=== PATIENT | male | born 1985 | race Caucasian/White ===

== ENCOUNTER 2019-03-16 11:47 | Emergency (ER) | payer OTHER ==
[2019-03-16] MEDS ORDERED: Ondansetron 4 MG/2 ML SDV IVPUSH ONE (11:52)
[2019-03-16] MEDS ORDERED: fentaNYL 50 MCG/ML SDV IVPUSH ONE (12:07)
[2019-03-16] MEDS: fentaNYL 50 MCG/ML SDV IVPUSH ONE ×2 (12:15→12:18)
[2019-03-16] MEDS: fentaNYL 100 MCG/2 ML SDV ONE ×3 (12:15→12:57)
--- NOTE | 2019-03-16 12:47 | CT ---
CT abdomen and pelvis Technique: Multiple axial sections were obtained from above the dome of the diaphragm inferiorly through the pubic symphysis. Intravenous and oral contrast not utilized. Lack of IV contrast diminishes detail for solid organ injury. Comparison: No prior abdominal imaging. Findings: Visualized lung bases shows nothing acute. Compression fracture is seen of T9 with anterior wedging. Fractures are also noted within the lamina on both sides. Findings are compatible with unstable fracture. Slightly displaced posterior elements into the central canals seen causing mild central canal stenosis. Transverse spinous process fracture also noted of T9. Surrounding soft tissue hematoma is seen within the paravertebral soft tissues. No discrete abnormality is seen within the liver. No discrete abnormality is seen within the spleen. Adrenal glands show no nodule. Pancreas shows no discrete abnormality. Artifact is noted from orthopedic hardware within the spine. No discrete abnormality is appreciated within either kidney. Aorta shows no aneurysm. No retroperitoneal adenopathy or mesenteric abnormalities are definitely seen. No pelvic mass or adenopathy is seen. No free fluid or inflammatory change is seen. Partially visualized donn within the left femur is noted. No other acute osseous finding is appreciated. Impression: 1. Compression fracture within T9 with fracture of the posterior elements. Slightly displaced posterior elements into the central canal is seen causing mild central canal stenosis. This fracture is unstable. Surrounding soft tissue hematoma is seen within the paravertebral soft tissues. Transverse process fracture is also noted to the left side of T9. 2. Artifact from orthopedic hardware within the lumbar spine. Study also slightly limited due to lack of IV contrast. 3. Within the limitations as noted above, no definite acute intra-abdominal or intrapelvic abnormality is appreciated. Diagnostic code #5 This report was dictated in [place] Standard Time
--- NOTE | 2019-03-16 12:52 | CT ---
CT lumbar spine Technique: Multiple axial sections were obtained multiple axial sections were obtained from the mid T10 level inferiorly through the L5-S1 disc. Reconstructed sagittal and coronal images were obtained. Findings: Mild paravertebral soft tissue hematoma is seen from the T9 fracture surrounding the T10 vertebral body. Disc space narrowing is noted at T10-11 and T11-12. Previous surgery is noted at L2-3 and L3-4 with intravertebral hardware as well as transpedicle screws within L2. Posterior laminectomy is seen at the surgical levels. Bony structures show focal osteopenia within the surgical levels as well as artifact. Transpedicle screws are also noted at L4. No lumbar spine fracture is appreciated. No bony central or bony neural foraminal stenosis is seen. No traumatic disc herniation is identified. L5-S1 level felt to be a transitional segment. Impression: 1. Transitional segment at L5-S1. 2. Prior surgery at L2, L3 and L4. 3. Mild paravertebral soft tissue hematoma at T10 secondary to the T9 compression fracture. 4. No lumbar spine fracture is seen. No traumatic disc herniation seen within the lumbar spine. Diagnostic code #3 This report was dictated in [place] Standard Time
[2019-03-16 13:21] LABS: BLOOD UREA NITROGEN,BUN 17 mg/dL (7.0-18.0); CARBON DIOXIDE,CO2 27.7 mmol/L (21.0-32.0); CHLORIDE,CL 102 mmol/L (98-107); GLUCOSE RANDOM 125 mg/dL (74-106); LIPASE 87 U/L (73-393); POTASSIUM,K 4.2 mmol/L (3.5-5.1); SODIUM,NA 139 mmol/L (136-148)
[2019-03-16] MEDS ORDERED: HYDROmorphone 2 MG/ML Syringe IVPUSH ONE (13:21)
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
== END 2019-03-16 14:50 ==
LOC: MW.ED 11:47
DX: S22.078A Other fracture of T9-T10 vertebra, initial encounter for closed fracture (principal); F17.210 Nicotine dependence, cigarettes, uncomplicated; Z91.040 Latex allergy status; V48.5XXA Car driver injured in noncollision transport accident in traffic accident, initial encounter; Y92.410 Unspecified street and highway as the place of occurrence of the external cause
CPT/HCPCS: 36415; 72131; 74176; 80053; 80305; 80320; 81003; 83690; 85025; 96374; 96375; 99285; J1170; J2405; J3010; G0480

== ENCOUNTER 2020-03-12 08:37 | Emergency (ER) | payer BC, OTHER ==
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
[2020-03-12] MEDS ORDERED: Ibuprofen 800 MG Tab PO ONE (09:16)
--- NOTE | 2020-03-12 09:16 | CR ---
Indication: Wrist pain status post injury Technique: Three views of the right wrist Findings: Comminuted intra-articular distal radius fracture 4 millimeters volar displacement of the distal radius. No significant angulation. Associated soft tissue swelling. Dictated by Robyn Sierra MD @ Mar 12 2020 9:10AM Signed by Dr. Robyn Sierra @ Mar 12 2020 9:15AM
== END 2020-03-12 09:51 | disposition home or self-care (01) ==
LOC: MW.ED 08:37
DX: S52.571A Other intraarticular fracture of lower end of right radius, initial encounter for closed fracture (principal); Z91.040 Latex allergy status; W17.89XA Other fall from one level to another, initial encounter
CPT/HCPCS: 29125; 73110; 99283; A9270

== ENCOUNTER 2020-04-13 11:45 | Emergency (ER) | payer BC ==
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
[2020-04-13 13:24] LABS: ACETAMINOPHEN <2.0 ug/mL; BLOOD UREA NITROGEN,BUN 14 mg/dL (7.0-18.0); CARBON DIOXIDE,CO2 23.1 mmol/L (21.0-32.0); CHLORIDE,CL 101 mmol/L (98-107); GLUCOSE RANDOM 59 mg/dL (74-106); POTASSIUM,K 4.1 mmol/L (3.5-5.1); SODIUM,NA 139 mmol/L (136-148)
--- NOTE | 2020-04-13 18:43 | PCM.SN.2 ---
#1 Interpretation EKG Date: 04/13/20 Time: 12:15 Rhythm: NSR Rate (Beats/Min): 70 [place]: Normal P-Wave: Present QRS: Normal ST-T: Normal QT: Normal Comparison: NA - No Prior EKG EKG Interpretation Comments: Sinus Rhythm
== END 2020-04-13 15:10 ==
LOC: MW.ED 11:45
DX: R45.851 Suicidal ideations (principal); E16.2 Hypoglycemia, unspecified; Z91.040 Latex allergy status
CPT/HCPCS: 36415; 80053; 80143; 80179; 80305-QW; 80307; 81001; 83735; 84443; 85025; 93005; 99285-25